=== PATIENT | female | born 1930 | race Caucasian/White ===

== ENCOUNTER 2017-02-08 23:21 | Emergency (ER) | payer MEDICARE, OTHER ==
[2017-02-08 23:31] VITALS: BP 164/74
[2017-02-08] MEDS ORDERED: Ketorolac 30 MG/ML SDV IM ONE (23:49)
--- NOTE | 2017-02-08 23:52 | EDM.PDOC ---
ED HPI GENERAL MEDICAL PROBLEM - General Chief Complaint: Lower Extremity Injury/Pain Stated Complaint: SCIATIC PAIN Time Seen by Provider: 02/08/17 23:50 Source of Information: Reports: Patient History Limitations: Reports: No Limitations - History of Present Illness INITIAL COMMENTS - FREE TEXT/NARRATIVE: gives long h/o sciatica got a shot for it before and it helped can't remember what. Right Hip Pain Score (Numeric/FACES): 9 - Related Data Allergies Allergy/AdvReac Type Severity Reaction Status Date / Time celecoxib [From Celebrex] Allergy Cannot Verified 05/20/15 11:19 Remember codeine Allergy Cannot Verified 05/20/15 11:19 Remember montelukast sodium Allergy Cannot Verified 05/20/15 11:19 [From Singulair] Remember morphine Allergy Cannot Verified 05/20/15 11:19 Remember Home Meds: Home Meds . 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 ED EXAM, GENERAL - Physical Exam Exam: See Below Exam Limited By: No Limitations General Appearance: Alert, WD/WN, Mild Distress, Other (pain) Ears: Hearing Grossly Normal Throat/Mouth: Normal Voice, No Airway Compromise Head: Atraumatic Neck: Non-Tender, Full Range of Motion Respiratory/Chest: No Respiratory Distress Cardiovascular: Regular Rate, Rhythm GI/Abdominal: Soft, Non-Tender Back Exam: Muscle Spasm, Other (right LS region without mid radiculitis, gait limited to pain) Neurological: Alert, Oriented, Normal Cognition, Normal Gait, No Motor/Sensory Deficits Psychiatric: Flat Affect Skin Exam: Warm, Dry, Normal Color Lymphatic: No Adenopathy Course - Vital Signs Last Recorded V/S: Last Vital Signs Temp 37.2 C 02/08/17 23:25 Pulse 84 02/08/17 23:25 Resp 18 02/08/17 23:25 BP 164/74 H 02/08/17 23:25 Pulse Ox 100 02/08/17 23:25 - Orders/Labs/Meds Meds: Medications Discontinued Medications Generic Name Dose Route Start Last Admin Trade Name Viktoria PRN Reason Stop Dose Admin Ketorolac Tromethamine 30 mg 02/08/17 23:49 02/08/17 23:56 Toradol IM 02/08/17 23:50 30 mg ONETIME ONE Administration - Re-Assessments/Exams Free Text/Narrative Re-Assessment/Exam: 02/09/17 00:22 s/p toradol = much better Departure - Departure Time of Disposition: 00:22 Disposition: Home, Self-Care 01 Condition: Good Clinical Impression: Sciatica neuralgia Qualifiers: Laterality: right Qualified Code(s): M54.31 - Sciatica, right side - Discharge Information Instructions: Sciatica, [id number] Forms: ED Department Discharge Additional Instructions: 1) rest 2) avoid bending lifting straining 3) try heat to sore area 4) follow up at clinic or recheck as needed
== END 2017-02-09 00:29 | disposition home or self-care (01) ==
LOC: DL.ED 23:21
DX: M54.31 Sciatica, right side (principal); M19.90 Unspecified osteoarthritis, unspecified site; F03.90 Unspecified dementia, unspecified severity, without behavioral disturbance, psychotic disturbance, mood disturbance, and anxiety; Z90.49 Acquired absence of other specified parts of digestive tract; Z98.890 Other specified postprocedural states; Z88.5 Allergy status to narcotic agent; Z88.8 Allergy status to other drugs, medicaments and biological substances
CPT/HCPCS: 96372; 99283; J1885

== ENCOUNTER 2017-07-12 03:39 | Inpatient (IN) | payer MEDICARE, OTHER ==
[2017-07-12] MEDS ORDERED: Morphine 4 MG/ML Syringe IVPUSH ONE (03:46)
[2017-07-12] MEDS ORDERED: Ondansetron 4 MG/2 ML SDV IV ONE (03:46)
--- NOTE | 2017-07-12 03:52 | EDM.PDOC ---
ED HPI GENERAL MEDICAL PROBLEM - General Chief Complaint: Upper Extremity Injury/Pain Stated Complaint: AMBULANCE SHOULDER PAIN Time Seen by Provider: 07/12/17 03:40 Source of Information: Reports: Patient History Limitations: Reports: No Limitations - History of Present Illness INITIAL COMMENTS - FREE TEXT/NARRATIVE: patient comes emergency Department today with complaints of left shoulder and humerus pain from a fall. The patient was trying to change her pants when she was at the assisted and she slipped while she was leaning on the wall landing on her left shoulder injuring her left shoulder and humerus. She laid on the floor for an hour to return to get ahold of someone to get their attention. She denies any loss of consciousness. She denies any headache or back pain. She primarily complains of pain to left shoulder and left humerus. She denies any chest pain. She denies any back pain. She denies any weakness dizziness lightheadedness or palpitations. She clearly just slipped and fell landing on her shoulder she relates. Left Shoulder Pain Score (Numeric/FACES): 8 - Related Data Allergies Allergy/AdvReac Type Severity Reaction Status Date / Time celecoxib [From Celebrex] Allergy Cannot Verified 05/20/15 11:19 Remember codeine Allergy Cannot Verified 05/20/15 11:19 Remember montelukast sodium Allergy Cannot Verified 05/20/15 11:19 [From Singulair] Remember morphine Allergy Cannot Verified 05/20/15 11:19 Remember Home Meds: Home Meds Aspirin 1 tab PO DAILY 07/12/17 [History] Cholecalciferol (Vitamin D3) [Vitamin D3] 1 cap PO DAILY 07/12/17 [History] Multivitamin [Multivitamins] 1 tab PO DAILY 07/12/17 [History] Past Medical History Musculoskeletal History: Reports: Arthritis Other Musculoskeletal History: arthritis Neurological History: Reports: Other (See Below) 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 ED EXAM, GENERAL - Physical Exam Exam: See Below Exam Limited By: No Limitations General Appearance: Alert, WD/WN, Mild Distress (appears mildly uncomfortable and [place] and screams out in pain with any movement.) Eye Exam: Bilateral Eye: Normal Inspection Ears: Normal External Exam, Normal Canal, Normal TMs Nose: Normal Inspection, Normal Mucosa, No Blood Throat/Mouth: Normal Inspection, Normal Lips Head: Atraumatic, Normocephalic Neck: Normal Inspection, Supple, Non-Tender, Full Range of Motion Respiratory/Chest: No Respiratory Distress, Lungs Clear Cardiovascular: Normal Peripheral Pulses, Regular Rate, Rhythm Peripheral Pulses: 2+: Radial (L), Radial (R) GI/Abdominal: Normal Bowel Sounds, Soft (Female) Exam: Deferred Rectal (Female) Exam: Deferred Back Exam: Normal Inspection, Full Range of Motion. No: Paraspinal Tenderness, Vertebral Tenderness Extremities: No: Normal Inspection (examination of the left upper extremity shows anterior swelling of the left shoulder with bruising as well. No overt bony deformity although difficult with the amount of swelling. On the proximal aspect of the left humerus there is quite a bit of tenderness and a question bony abnormality at this site. There is some crepitus. There is no breaks in the skin. Elbow is atraumatic without tenderness present swelling or ecchymosis or bony deformity. The left forearm wrist and hand as well are atraumatic and similar to the left elbow. CMS is intact throughout the entirety of the left upper extremity. There is no tenderness bruising swelling or ecchymosis to left scapula.) Neurological: Alert, Oriented, CN II-XII Intact, Normal Cognition, No Motor/ Sensory Deficits Psychiatric: Normal Affect, Normal Mood Skin Exam: Warm, Dry, Intact, Normal Color Course - Vital Signs Last Recorded V/S: Last Vital Signs Temp 36.3 C 07/12/17 03:44 Pulse 86 07/12/17 03:44 Resp 16 07/12/17 03:44 BP 168/67 H 07/12/17 03:44 Pulse Ox 100 07/12/17 03:44 - Orders/Labs/Meds Orders: Active Orders 24 hr Category Date Time Status Humerus Lt [CR] Urgent Exams 07/12/17 03:50 Taken Shoulder Comp Lt [CR] Urgent Exams 07/12/17 03:50 Ordered Meds: Medications Discontinued Medications Generic Name Dose Route Start Last Admin Trade Name Viktoria PRN Reason Stop Dose Admin Diphenhydramine HCl 25 mg 07/12/17 04:27 07/12/17 04:31 Benadryl IVPUSH 07/12/17 04:28 25 mg ONETIME ONE Administration Diphenhydramine HCl Confirm 07/12/17 04:29 07/12/17 04:35 Benadryl Administered 07/12/17 04:30 Not Given Dose 50 mg .ROUTE .STK-MED ONE Methylprednisolone Sodium Succinate 125 mg 07/12/17 04:27 07/12/17 04:31 Solu-Medrol IVPUSH 07/12/17 04:28 125 mg ONETIME ONE Administration Methylprednisolone Sodium Succinate Confirm 07/12/17 04:29 07/12/17 04:35 Solu-Medrol Administered 07/12/17 04:30 Not Given Dose 125 mg .ROUTE .STK-MED ONE Morphine Sulfate 4 mg 07/12/17 03:46 07/12/17 03:53 Morphine IVPUSH 07/12/17 03:47 4 mg ONETIME ONE Administration Ondansetron HCl 4 mg 07/12/17 03:46 07/12/17 03:52 Zofran IV 07/12/17 03:47 4 mg ONETIME ONE Administration - Radiology Interpretation Free Text/Narrative:: x-ray of the left shoulder reviewed extemporaneously by myself with a comminuted impacted proximal humeral head fracture that is moderately displaced x-ray per radiology acute nondisplaced fracture of the proximal shaft of the humerus. - Re-Assessments/Exams Free Text/Narrative Re-Assessment/Exam: 07/12/17 03:58 Morphine 4mg IVP Zofran 4mg IVP 07/12/17 07:17 Pt has been resting well after the above therapy. Pt was noted to have a morphine allergy bracelet on that she did not alert up to upon arrival after the morphien she did get some itching and was given Benadryl and solumedrol. She was placed in a sling and we tried to get her up and see if we could get her home and she had a syncopal episode vaso-vagel episode while on the commode. She had to be lifted to the bed. She maintained per pulse somewhat josh and respirations on her own. She quickly alerted. Due to the syncopal episode and the pain she is having and living at an assistive living center we can not discharge her home due to safety concerns. Departure - Departure Time of Disposition: 07:15 Disposition: Admitted As Inpatient 67 Clinical Impression: Fracture of humerus Qualifiers: Encounter type: initial encounter Humerus Location: proximal Fracture type: closed Fracture alignment: nondisplaced Laterality: left Syncope Qualifiers: Syncope type: vasovagal syncope Qualified Code(s): R55 - Syncope and collapse - Discharge Information Forms: ED Department Discharge ED Communication - Discussed Case With (1) Discussed Case With (1): Admitting Provider (Spoke with Dr. Cid HPI [facility] findings and concerned were relayed to him. His questions were answered. He accepted the patient in transfer here at [facility].) - My Orders Last 24 Hours: My Active Orders 07/12/17 03:50 Humerus Lt [CR] Urgent Shoulder Comp Lt [CR] Urgent - Assessment/Plan Last 24 Hours: My Active Orders 07/12/17 03:50 Humerus Lt [CR] Urgent Shoulder Comp Lt [CR] Urgent Assessment:: Left proximal humerus fracture. Syncopal episode vaso-vagel. Plan: Admit Jose Roberto for pain management and monitoring.
[2017-07-12] MEDS ORDERED: diphenhydrAMINE 50 MG/ML SDV IVPUSH ONE (04:27)
[2017-07-12] MEDS ORDERED: methylPREDNISolone Sodium Succinate 125 MG/2 ML SDV IVPUSH ONE (04:27)
[2017-07-12] MEDS ORDERED: diphenhydrAMINE 50 MG/ML SDV ONE (04:29)
[2017-07-12] MEDS ORDERED: methylPREDNISolone Sodium Succinate 125 MG/2 ML SDV ONE (04:29)
[2017-07-12] MEDS ORDERED: Sodium Chloride 0.9% 10 ML Syringe FLUSH PRN (09:22)
[2017-07-12] MEDS ORDERED: Zolpidem 5 MG Tab PO PRN (09:22)
--- NOTE | 2017-07-12 09:35 | PCM.HP ---
H&P History of Present Illness - General Date of Service: 07/12/17 Admit Problem/Dx: Admission Diagnosis/Problem Admission Diagnosis/Problem Syncope Source of Information: Patient - History of Present Illness Initial Comments - Free Text/Narative: The patient is an 87-year-old lady with no major medical problems. The patient had a fall while she was trying to put her pants on. She laid on the floor for about 3 hours as she is estimating. She was brought into the emergency room after she was found. She was noted to have from humeral fracture. She received morphine after which had itching and concern was allergic reaction associated received Benadryl and Solu-Medrol. While trying to get her off and see if she would be able to function at home she had a brief near syncopal episode. Transient bradycardia was noted. The patient completely recovered quickly. She is complaining of mild to moderate pain in the left shoulder, worse with movements. This is since the fall. No associated chest pain, shortness of breath. She denies any symptoms prior to the fall. It was just an accidental mechanical fall. Left Shoulder Pain Score (Numeric/FACES): 8 - Related Data Allergies/Adverse Reactions: Allergies Allergy/AdvReac Type Severity Reaction Status Date / Time celecoxib [From Celebrex] Allergy Cannot Verified 05/20/15 11:19 Remember codeine Allergy Cannot Verified 05/20/15 11:19 Remember montelukast sodium Allergy Cannot Verified 05/20/15 11:19 [From Singulair] Remember morphine Allergy Cannot Verified 05/20/15 11:19 Remember Home Medications: Home Meds Aspirin 1 tab PO DAILY 07/12/17 [History] Cholecalciferol (Vitamin D3) [Vitamin D3] 1 cap PO DAILY 07/12/17 [History] Multivitamin [Multivitamins] 1 tab PO DAILY 07/12/17 [History] Past Medical History Musculoskeletal History: Reports: Arthritis Other Musculoskeletal History: arthritis Neurological History: Reports: Other (See Below) 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 Psychiatric History: Reports: Dementia, Depression - Infectious Disease History Infectious Disease History: Reports: Chicken Pox, Measles, Mumps - Past Surgical History GI Surgical History: Reports: Cholecystectomy Other Musculoskeletal Surgeries/Procedures:: left shoulder dislocation Social & Family History - Tobacco Use Smoking Status *Q: Never Smoker Second Hand Smoke Exposure: No - Caffeine Use Caffeine Use: Reports: Coffee - Recreational Drug Use Recreational Drug Use: No H&P Review of Systems - Review of Systems: Review Of Systems: See Below General: Denies: Fever, Chills Pulmonary: Denies: Shortness of Breath Cardiovascular: Denies: Chest Pain Gastrointestinal: Denies: Abdominal Pain Musculoskeletal: Reports: Other (Left upper arm pain) Exam - Exam Exam: See Below - Vital Signs Vital Signs: Last Vital Signs Temp 36.3 C 07/12/17 08:42 Pulse 93 07/12/17 08:42 Resp 20 07/12/17 08:42 BP 116/62 07/12/17 08:42 Pulse Ox 100 07/12/17 08:42 Weight: 63.503 kg - Exam General: Alert, Oriented Neck: Supple Lungs: Clear to Auscultation, Normal Respiratory Effort Cardiovascular: Regular Rate, Regular Rhythm GI/Abdominal Exam: Normal Bowel Sounds, Soft, Non-Tender Extremities: Pedal Edema (Trace bilateral) Neurological: Cranial Nerves Intact Neuro Extensive - Mental Status: Alert, Oriented x3, Normal Mood/Affect *Q Meaningful Use (ADM) - VTE *Q VTE Criteria *Q: - Stroke *Q Stroke Criteria *Q: - AMI *Q AMI Criteria *Q: - Problem List (1) Fracture of humerus SNOMED Code(s): 14973251 ICD Code: S42.309A - UNSP FRACTURE OF SHAFT OF HUMERUS, UNSP ARM, INIT Status: Acute Current Visit: Yes Qualifiers: Encounter type: initial encounter Humerus Location: proximal Fracture type: closed Fracture alignment: nondisplaced Laterality: left (2) Syncope SNOMED Code(s): 725006889 ICD Code: R55 - SYNCOPE AND COLLAPSE Status: Acute Current Visit: Yes Qualifiers: Syncope type: vasovagal syncope Qualified Code(s): R55 - Syncope and collapse Problem List Initiated/Reviewed/Updated: Yes Orders Last 24hrs: Active Orders 24 hr Category Date Time Status Patient Status [ADT] Routine ADT 07/12/17 09:22 Ordered Antiembolic Devices [RC] PER UNIT ROUTINE Care 07/12/17 09:26 Ordered Oxygen Therapy [RC] PRN Care 07/12/17 09:22 Ordered Peripheral IV Care [RC] . DIRECTED Care 07/12/17 09:26 Ordered Telemetry Monitoring [Cardiac Monitoring] [RC] . Care 07/12/17 09:18 Ordered DIRECTED Up With Assistance [RC] ASDIRECTED Care 07/12/17 09:22 Ordered VTE/DVT Education [RC] PER UNIT ROUTINE Care 07/12/17 09:22 Ordered Vital Signs [RC] Q4H Care 07/12/17 09:22 Ordered OT Evaluation and Treatment [CONS] Routine Cons 07/12/17 09:19 Ordered PT Evaluation and Treatment [CONS] Routine Cons 07/12/17 09:19 Ordered Regular Diet [DIET] Diet 07/12/17 Lunch Ordered BASIC METABOLIC PANEL,BMP [CHEM] AM Lab 07/13/17 05:15 Ordered BASIC METABOLIC PANEL,BMP [CHEM] Routine Lab 07/12/17 09:20 Ordered CBC WITH AUTO DIFF [HEME] AM Lab 07/13/17 05:15 Ordered CBC WITH AUTO DIFF [HEME] Routine Lab 07/12/17 09:20 Ordered TROPONIN I [CHEM] Routine Lab 07/12/17 09:22 Ordered Acetaminophen [Tylenol] Med 07/12/17 09:17 Ordered 650 mg PO Q6H PRN Aspirin Med 07/13/17 09:00 Ordered 1 tab PO DAILY Cholecalciferol (Vitamin D3) [Vitamin D3] Med 07/13/17 09:00 Ordered 1 cap PO DAILY Heparin Sodium Med 07/12/17 14:00 Ordered 5,000 units SUBCUT Q8HR Ibuprofen [Motrin] Med 07/12/17 09:20 Ordered 400 mg PO Q6H PRN Multivitamin [Multivitamins] Med 07/13/17 09:00 Ordered 1 tab PO DAILY Sodium Chloride 0.9% [Saline Flush] Med 07/12/17 09:22 Ordered 10 ml FLUSH ASDIRECTED PRN Zolpidem [Ambien] Med 07/12/17 09:22 Ordered 5 mg PO BEDTIME PRN Antiembolic Hose [OM.PC] Per Unit Routine Oth 07/12/17 09:25 Ordered Peripheral IV Insertion Adult [OM.PC] Routine Oth 07/12/17 09:22 Ordered Saline Lock Insert [OM.PC] Routine Oth 07/12/17 09:22 Ordered Resuscitation Status Routine Resus Stat 07/12/17 09:22 Ordered Medication Orders Acetaminophen (Tylenol) 650 mg PO Q6H PRN PRN Reason: pain, fever Aspirin (Aspirin) mg PO DAILY JOSSELYN Heparin Sodium (Porcine) (Heparin Sodium) 5,000 units SUBCUT Q8HR JOSSELYN Ibuprofen (Motrin) 400 mg PO Q6H PRN PRN Reason: Pain Non-Formulary Medication (Cholecalciferol (Vitamin D3) [Vitamin D3]) 1 cap PO DAILY JOSSELYN Non-Formulary Medication (Multivitamin [Multivitamins]) 1 tab PO DAILY [facility] Sodium Chloride (Saline Flush) 10 ml FLUSH ASDIRECTED PRN PRN Reason: Keep Vein Open Zolpidem Tartrate (Ambien) 5 mg PO BEDTIME PRN PRN Reason: Sleep Assessment/Plan Comment:: #1 left humeral fracture. This appeared nondisplaced on x-ray. For now use a sling We'll need further orthopedic follow-up. #2 pain control We will be careful with narcotics, start Tylenol Use Motrin, she has tolerated naproxen in the past but does have celecoxib noted as an allergy #3 syncopal episode This might be due to pain medications, pain Will check basic metabolic panel, CBC, monitor on telemetry, check troponin #4. Os PT and OT to evaluate the patient for discharge planning #5 DVT prophylaxis with subcutaneous heparin
[2017-07-12 10:32] LABS: ANION GAP 10.5; CHLORIDE,CL 97 mmol/L (101-111); SODIUM,NA 135 mmol/L (135-145)
[2017-07-12] MEDS ORDERED: Potassium Chloride 10 MEQ Tab.ER PO ONE (12:32)
[2017-07-12] MEDS: Acetaminophen 325 MG Tab PO PRN ×2 (12:45→20:07)
[2017-07-12] MEDS: Heparin Sodium 5,000 Units/ML Vial SUBCUT SCH ×2 (13:24→22:13)
[2017-07-12] MEDS: Ibuprofen 400 MG Tab PO PRN (15:28)
[2017-07-13] MEDS: Ibuprofen 400 MG Tab PO PRN ×3 (04:56→20:51)
[2017-07-13] MEDS: Heparin Sodium 5,000 Units/ML Vial SUBCUT SCH ×3 (05:22→21:47)
[2017-07-13 07:05] LABS: ANION GAP 13.5
[2017-07-13] MEDS: Aspirin 81 MG Tab.Chew PO SCH (08:19)
[2017-07-13] MEDS: Multivitamins,Therapeutic Tab PO SCH (08:20)
[2017-07-13] MEDS: Acetaminophen 325 MG Tab PO PRN ×2 (08:24→21:51)
[2017-07-13] MEDS ORDERED: CHOLECALCIFEROL 1000 UNIT PO SCH (09:00)
[2017-07-13] MEDS ORDERED: Magnesium Hydroxide 400 MG/5 ML Susp 30 ML Cup PO PRN (11:22)
--- NOTE | 2017-07-13 11:30 | PCM.PN ---
- General Info Date of Service: 07/13/17 Admission Dx/Problem (Free Text): Admission Diagnosis/Problem Admission Diagnosis/Problem humerus fracture Subjective Update: No further syncopal episode. She is feeling well other than the left upper extremity pain. She has pain in the left upper extremity with movements. No pain at rest. Noted to have mild confusion yesterday. That appears improved Still needs significant help with activities. No chest pain, shortness of breath. - Review of Systems General: Reports: Weakness. Denies: Fever Pulmonary: Denies: Shortness of Breath Cardiovascular: Denies: Chest Pain Gastrointestinal: Denies: Abdominal Pain Genitourinary: Denies: Dysuria - Patient Data Vitals - Most Recent: Last Vital Signs Temp 36.9 C 07/13/17 07:53 Pulse 76 07/13/17 07:53 Resp 18 07/13/17 07:53 BP 93/43 L 07/13/17 07:53 Pulse Ox 98 07/13/17 09:22 Weight - Most Recent: 63.503 kg I&O - Last 24 Hours: Intake & Output 07/12/17 07/13/17 07/13/17 22:59 06:59 14:59 Intake Total 350 950 Output Total 250 225 150 Balance -250 125 800 Lab Results Last 24 Hours: Laboratory Results - last 24 hr 07/12/17 07/13/17 07/13/17 Range/Units 16:34 06:00 06:00 WBC 11.0 H (5.0-10.0) 10^3/uL RBC 2.83 L (4.2-5.4) 10^6/uL Hgb 8.6 L D (12.0-16.0) g/dL Hct 26.1 L (37.0-47.0) % MCV 92.2 (80-100) fL MCH 30.4 (27.0-34.0) pg MCHC 33.0 (33.0-35.0) g/dL Plt Count 193 (150-450) 10^3/uL Neut % (Auto) 75.7 H (42.2-75.2) % Lymph % (Auto) 13.6 L (20.5-50.1) % [place] % (Auto) 10.0 H (2-8) % Eos % (Auto) 0.1 L (1.0-3.0) % Baso % (Auto) 0.6 (0.0-1.0) % Sodium 132 L (135-145) mmol/L Potassium 4.5 (3.6-5.0) mmol/L Chloride 97 L (101-111) mmol/L Carbon Dioxide 26.0 (21.0-31.0) mmol/L Anion Gap 13.5 BUN 28 H (7-18) mg/dL Creatinine 0.9 (0.6-1.3) mg/dL Est Cr Clr Drug Dosing 35.49 mL/min Estimated GFR (MDRD) 59 Glucose 105 (74-105) mg/dL Calcium 8.6 (8.4-10.2) mg/dl Urine Color Yellow (YELLOW) Urine Appearance Slightly cloudy (CLEAR) Urine pH 6.0 (5.0-9.0) Ur Specific [place] 1.020 (1.005-1.030) Urine Protein Negative (NEGATIVE) Urine Glucose (UA) 100 H (NEGATIVE) Urine Ketones Negative (NEGATIVE) Urine Occult Blood Negative (NEGATIVE) Urine Nitrite Negative (NEGATIVE) Urine Bilirubin Negative (NEGATIVE) Urine Urobilinogen 0.2 (0.2-1.0) mg/dL Ur Leukocyte Esterase Negative (NEGATIVE) Urine RBC 0-5 /HPF Urine WBC 0-5 (0-5/HPF) /HPF Ur Epithelial Cells Rare /HPF Amorphous Sediment Moderate H (0/HPF) /HPF Urine Bacteria Rare (0-FEW/HPF) /HPF Med Orders - Current: Current Medications Acetaminophen (Tylenol) 650 mg PO Q6H PRN PRN Reason: pain, fever Last Admin: 07/13/17 08:24 Dose: 650 mg Aspirin (Aspirin) 81 mg PO DAILY@0800 [facility] Last Admin: 07/13/17 08:19 Dose: 81 mg Heparin Sodium (Porcine) (Heparin Sodium) 5,000 units SUBCUT Q8HR [facility] Last Admin: 07/13/17 05:22 Dose: 5,000 units Ibuprofen (Motrin) 400 mg PO Q6H PRN PRN Reason: Pain Last Admin: 07/13/17 04:56 Dose: 400 mg Magnesium Hydroxide (Milk Of Magnesia) 30 ml PO Q8H PRN PRN Reason: Constipation Multivitamins (Thera) 1 each PO DAILY [facility] Last Admin: 07/13/17 08:20 Dose: 1 each Cholecalciferol ( Vitamin D3) 1000 Unit Tab- Nonform Med 0 cap PO DAILY JOSSELYN Sodium Chloride (Saline Flush) 10 ml FLUSH ASDIRECTED PRN PRN Reason: Keep Vein Open Zolpidem Tartrate (Ambien) 5 mg PO BEDTIME PRN PRN Reason: Sleep Discontinued Medications Diphenhydramine HCl (Benadryl) 25 mg IVPUSH ONETIME ONE Stop: 07/12/17 04:28 Last Admin: 07/12/17 04:31 Dose: 25 mg Diphenhydramine HCl (Benadryl) Confirm Administered Dose 50 mg .ROUTE .STK-MED ONE Stop: 07/12/17 04:30 Last Admin: 07/12/17 04:35 Dose: Not Given Methylprednisolone Sodium Succinate (Solu-Medrol) 125 mg IVPUSH ONETIME ONE Stop: 07/12/17 04:28 Last Admin: 07/12/17 04:31 Dose: 125 mg Methylprednisolone Sodium Succinate (Solu-Medrol) Confirm Administered Dose 125 mg .ROUTE .STK-MED ONE Stop: 07/12/17 04:30 Last Admin: 07/12/17 04:35 Dose: Not Given Morphine Sulfate (Morphine) 4 mg IVPUSH ONETIME ONE Stop: 07/12/17 03:47 Last Admin: 07/12/17 03:53 Dose: 4 mg Ondansetron HCl (Zofran) 4 mg IV ONETIME ONE Stop: 07/12/17 03:47 Last Admin: 07/12/17 03:52 Dose: 4 mg Potassium Chloride (Klor-Con 10) 40 meq PO ONETIME ONE Stop: 07/12/17 12:33 Last Admin: 07/12/17 13:20 Dose: 40 meq - Exam General: Alert, Oriented Neck: Supple Lungs: Normal Respiratory Effort, Decreased Breath Sounds Cardiovascular: Regular Rate, Regular Rhythm Extremities: No Pedal Edema, Other (Left upper extremity in a sling) - Problem List & Annotations (1) Fracture of humerus SNOMED Code(s): 87580820 Code(s): S42.309A - UNSP FRACTURE OF SHAFT OF HUMERUS, UNSP ARM, INIT Status: Acute Current Visit: Yes Qualifiers: Encounter type: initial encounter Humerus Location: proximal Fracture type: closed Fracture alignment: nondisplaced Laterality: left (2) Syncope SNOMED Code(s): 544586812 Code(s): R55 - SYNCOPE AND COLLAPSE Status: Acute Current Visit: Yes Qualifiers: Syncope type: vasovagal syncope Qualified Code(s): R55 - Syncope and collapse - Problem List Review Problem List Initiated/Reviewed/Updated: Yes - My Orders Last 24 Hours: My Active Orders 07/13/17 11:22 Magnesium Hydroxide [Milk of Magnesia] 30 ml PO Q8H PRN - Plan Plan:: #1 left humeral fracture. This appeared nondisplaced on x-ray. For now use a sling We'll need further orthopedic follow-up. Still needs significant help from the nursing staff. I do not think that she is currently able to manage on her own. #2 pain control We will be careful with narcotics, use Tylenol Use Motrin, she has tolerated naproxen in the past but does have celecoxib noted as an allergy #3 syncopal episode This might be due to pain medications, pain No arrhythmia on telemetry #4. Will have PT and OT to evaluate the patient for discharge planning #5 DVT prophylaxis with subcutaneous heparin
[2017-07-13] MEDS: CHOLECALCIFEROL 1000 UNIT PO SCH (16:31)
[2017-07-14] MEDS: Ibuprofen 400 MG Tab PO PRN ×3 (04:58→22:11)
[2017-07-14] MEDS: Heparin Sodium 5,000 Units/ML Vial SUBCUT SCH ×3 (06:10→22:05)
[2017-07-14] MEDS: Aspirin 81 MG Tab.Chew PO SCH (08:22)
[2017-07-14] MEDS: Multivitamins,Therapeutic Tab PO SCH (08:22)
[2017-07-14] MEDS: CHOLECALCIFEROL 1000 UNIT PO SCH (08:24)
[2017-07-14] MEDS: Acetaminophen 325 MG Tab PO PRN (17:43)
[2017-07-15] MEDS: Ibuprofen 400 MG Tab PO PRN ×2 (05:12→23:44)
[2017-07-15] MEDS: Heparin Sodium 5,000 Units/ML Vial SUBCUT SCH ×2 (05:13→14:53)
[2017-07-15 07:07] LABS: ANION GAP 9.2; CHLORIDE,CL 96 mmol/L (101-111); SODIUM,NA 131 mmol/L (135-145)
[2017-07-15] MEDS: Acetaminophen 325 MG Tab PO PRN ×2 (10:21→19:19)
[2017-07-15] MEDS: Multivitamins,Therapeutic Tab PO SCH (10:22)
[2017-07-15] MEDS: Aspirin 81 MG Tab.Chew PO SCH (10:22)
[2017-07-15] MEDS: CHOLECALCIFEROL 1000 UNIT PO SCH (10:23)
--- NOTE | 2017-07-15 13:53 | PCM.PN ---
- General Info Date of Service: 07/15/17 Admission Dx/Problem (Free Text): Admission Diagnosis/Problem Admission Diagnosis/Problem humerus fracture Subjective Update: No further syncopal episode. She is feeling well other than the left upper extremity pain. She has pain in the left upper extremity with movements. the left upper extremity developed large amount of bruising, swelling, hematoma No chest pain, shortness of breath. - Review of Systems General: Denies: Fever Pulmonary: Denies: Shortness of Breath Cardiovascular: Denies: Chest Pain Neurological: Denies: Confusion (in the evenings) - Patient Data Vitals - Most Recent: Last Vital Signs Temp 36.3 C 07/15/17 12:17 Pulse 75 07/15/17 12:17 Resp 20 07/15/17 12:17 BP 106/37 L 07/15/17 12:17 Pulse Ox 94 L 07/15/17 12:17 Weight - Most Recent: 63.503 kg I&O - Last 24 Hours: Intake & Output 07/14/17 07/15/17 07/15/17 22:59 06:59 14:59 Intake Total 540 250 Output Total 400 1250 Balance 140 -1000 Lab Results Last 24 Hours: Laboratory Results - last 24 hr 07/15/17 07/15/17 07/15/17 Range/Units 06:25 06:25 08:02 WBC 5.9 (5.0-10.0) 10^3/uL RBC 2.26 L (4.2-5.4) 10^6/uL Hgb 6.8 L* D 7.0 L (12.0-16.0) g/dL Hct 21.0 L (37.0-47.0) % MCV 92.9 (80-100) fL MCH 30.1 (27.0-34.0) pg MCHC 32.4 L (33.0-35.0) g/dL Plt Count 161 (150-450) 10^3/uL Neut % (Auto) 66.0 (42.2-75.2) % Lymph % (Auto) 21.8 (20.5-50.1) % [place] % (Auto) 9.8 H (2-8) % Eos % (Auto) 1.9 (1.0-3.0) % Baso % (Auto) 0.5 (0.0-1.0) % Sodium 131 L (135-145) mmol/L Potassium 4.2 (3.6-5.0) mmol/L Chloride 96 L (101-111) mmol/L Carbon Dioxide 30.0 (21.0-31.0) mmol/L Anion Gap 9.2 BUN 16 (7-18) mg/dL Creatinine 0.6 (0.6-1.3) mg/dL Est Cr Clr Drug Dosing 53.23 mL/min Estimated GFR (MDRD) > 60 Glucose 99 (74-105) mg/dL Calcium 8.2 L (8.4-10.2) mg/dl Med Orders - Current: Current Medications Acetaminophen (Tylenol) 650 mg PO Q6H PRN PRN Reason: pain, fever Last Admin: 07/15/17 10:21 Dose: 650 mg Aspirin (Aspirin) 81 mg PO DAILY@0800 [facility] Last Admin: 07/15/17 10:22 Dose: 81 mg Heparin Sodium (Porcine) (Heparin Sodium) 5,000 units SUBCUT Q8HR [facility] Last Admin: 07/15/17 05:13 Dose: 5,000 units Ibuprofen (Motrin) 400 mg PO Q6H PRN PRN Reason: Pain Last Admin: 07/15/17 05:12 Dose: 400 mg Magnesium Hydroxide (Milk Of Magnesia) 30 ml PO Q8H PRN PRN Reason: Constipation Last Admin: 07/13/17 14:18 Dose: 30 ml Multivitamins (Thera) 1 each PO DAILY [facility] Last Admin: 07/15/17 10:22 Dose: 1 each Cholecalciferol ( Vitamin D3) 1000 Unit Tab-*Patients Own 2 cap PO DAILY [facility] Last Admin: 07/15/17 10:23 Dose: 2 cap Senna/Docusate Sodium (Senna Plus) 1 tab PO BID [facility] Last Admin: 07/15/17 10:21 Dose: 1 tab Sodium Chloride (Saline Flush) 10 ml FLUSH ASDIRECTED PRN PRN Reason: Keep Vein Open Zolpidem Tartrate (Ambien) 5 mg PO BEDTIME PRN PRN Reason: Sleep Discontinued Medications Diphenhydramine HCl (Benadryl) 25 mg IVPUSH ONETIME ONE Stop: 07/12/17 04:28 Last Admin: 07/12/17 04:31 Dose: 25 mg Diphenhydramine HCl (Benadryl) Confirm Administered Dose 50 mg .ROUTE .STK-MED ONE Stop: 07/12/17 04:30 Last Admin: 07/12/17 04:35 Dose: Not Given Methylprednisolone Sodium Succinate (Solu-Medrol) 125 mg IVPUSH ONETIME ONE Stop: 07/12/17 04:28 Last Admin: 07/12/17 04:31 Dose: 125 mg Methylprednisolone Sodium Succinate (Solu-Medrol) Confirm Administered Dose 125 mg .ROUTE .STK-MED ONE Stop: 07/12/17 04:30 Last Admin: 07/12/17 04:35 Dose: Not Given Morphine Sulfate (Morphine) 4 mg IVPUSH ONETIME ONE Stop: 07/12/17 03:47 Last Admin: 07/12/17 03:53 Dose: 4 mg Cholecalciferol ( Vitamin D3) 1000 Unit Tab- Nonform Med 0 cap PO DAILY [facility] Last Admin: 07/13/17 17:14 Dose: Not Given Ondansetron HCl (Zofran) 4 mg IV ONETIME ONE Stop: 07/12/17 03:47 Last Admin: 07/12/17 03:52 Dose: 4 mg Potassium Chloride (Klor-Con 10) 40 meq PO ONETIME ONE Stop: 07/12/17 12:33 Last Admin: 07/12/17 13:20 Dose: 40 meq - Exam General: Alert, Oriented Lungs: Clear to Auscultation, Normal Respiratory Effort Cardiovascular: Regular Rate, Regular Rhythm Extremities: No Pedal Edema, Other (left upper extremity. Large amount of bruising, hematoma) - Problem List & Annotations (1) Fracture of humerus SNOMED Code(s): 67374532 Code(s): S42.309A - UNSP FRACTURE OF SHAFT OF HUMERUS, UNSP ARM, INIT Status: Acute Current Visit: Yes Qualifiers: Encounter type: initial encounter Humerus Location: proximal Fracture type: closed Fracture alignment: nondisplaced Laterality: left (2) Syncope SNOMED Code(s): 008674886 Code(s): R55 - SYNCOPE AND COLLAPSE Status: Acute Current Visit: Yes Qualifiers: Syncope type: vasovagal syncope Qualified Code(s): R55 - Syncope and collapse - Problem List Review Problem List Initiated/Reviewed/Updated: Yes - My Orders Last 24 Hours: My Active Orders 07/15/17 13:42 Humerus Lt [CR] Routine 07/15/17 13:43 RED BLOOD CELLS LP [BBK] Routine TYPE AND SCREEN [BBK] Routine Transfuse PRBC [Transfuse Red Blood Cells] [COMM] Routine Transfuse Red Blood Cells [COMM] Routine - Plan Plan:: #1 left humeral fracture. This appeared nondisplaced on x-ray. For now use a sling We'll need further orthopedic follow-up.we will check if this can be done here in [place] in the very near future. I will repeat another x-ray to make sure that there is no change in position Still needs significant help from the nursing staff. I do not think that she is currently able to manage on her own. #2 pain control We will be careful with narcotics, use Tylenol Use Motrin, she has tolerated naproxen in the past but does have celecoxib noted as an allergy #3 syncopal episode This might be due to pain medications, pain No arrhythmia on telemetry #4. Will have PT and OT to evaluate the patient for discharge planning #5 acute blood loss anemia secondary to left humeral fracture and hematoma I think the patient would benefit from a blood transfusion. Start iron as above. Discussed the risks benefits and alternatives of blood transfusion. #6 DVT prophylaxis with subcutaneous heparin
--- NOTE | 2017-07-15 14:23 | CR ---
Clinical history: 87-year-old hospitalized female who "fractured left shoulder, Saturday" now with incr eased swelling. Interpretation: Comminuted impacted, near anatomically aligned, fractures humeral head and neck. Mild subluxation but no dislocation of glenohumeral joint. Juxta-articular soft tissue swelling (hematoma?) but no sign of other fracture or acromioclavicular s eparation. Left lung apex clear (no ipsilateral rib fractures).
[2017-07-15] MEDS: traMADol 50 MG Tab PO PRN (21:36)
[2017-07-16] MEDS: Heparin Sodium 5,000 Units/ML Vial SUBCUT SCH ×2 (05:43→06:36)
[2017-07-16] MEDS: traMADol 50 MG Tab PO PRN (05:55)
[2017-07-16 07:02] LABS: ANION GAP 11.9; CHLORIDE,CL 98 mmol/L (101-111); SODIUM,NA 134 mmol/L (135-145)
[2017-07-16] MEDS ORDERED: Iron Polysaccharides Complex 150 MG Cap PO SCH (09:00)
[2017-07-16] MEDS: Aspirin 81 MG Tab.Chew PO SCH (09:12)
[2017-07-16] MEDS: Multivitamins,Therapeutic Tab PO SCH (09:12)
[2017-07-16] MEDS: CHOLECALCIFEROL 1000 UNIT PO SCH (09:13)
--- NOTE | 2017-07-16 10:56 | PCM.DCSUM1 ---
Discharge Summary - Hospital Course Free Text/Narrative:: The patient is an 87-year-old lady with no major medical problems. The patient had a fall while she was trying to put her pants on. She laid on the floor for about 3 hours as she is estimating. She was brought into the emergency room after she was found. She was noted to have from humeral fracture. She received morphine after which had itching and concern was allergic reaction associated received Benadryl and Solu-Medrol. While trying to get her off and see if she would be able to function at home she had a brief near syncopal episode. Transient bradycardia was noted. The patient completely recovered quickly. #1 left humeral fracture. This appeared nondisplaced on x-ray. developed large edema and hematoma repeated Xray on 07/15 - no change in position For now use a sling will transfer to [facility] for orthopedic evaluation Still needs significant help from the nursing staff. I do not think that she is currently able to manage on her own. discharge plan was to go to swing bed in [place] #2 pain control We will be careful with narcotics, use Tylenol Use Motrin, she has tolerated naproxen in the past but does have celecoxib noted as an allergy #3 syncopal episode This might be due to pain medications, pain No arrhythmia on telemetry #4 acute blood loss anemia secondary to left humeral fracture and hematoma received 2 u of PRBC transfusion on 07/15. Started iron. - Discharge Data Discharge Date: 07/16/17 Discharge Disposition: DC/Tfer to Acute Hospital 02 Condition: Good - Discharge Diagnosis/Problem(s) (1) Fracture of humerus SNOMED Code(s): 74537727 ICD Code: S42.309A - UNSP FRACTURE OF SHAFT OF HUMERUS, UNSP ARM, INIT Status: Acute Current Visit: Yes Qualifiers: Encounter type: initial encounter Humerus Location: proximal Fracture type: closed Fracture alignment: nondisplaced Laterality: left (2) Syncope SNOMED Code(s): 197757424 ICD Code: R55 - SYNCOPE AND COLLAPSE Status: Acute Current Visit: Yes Qualifiers: Syncope type: vasovagal syncope Qualified Code(s): R55 - Syncope and collapse - Patient Instructions Diet: Usual Diet as Tolerated Activity: As Tolerated - Discharge Plan Home Medications: Home Meds Aspirin 81 mg PO DAILY 07/12/17 [History] Cholecalciferol (Vitamin D3) [Vitamin D3] 2,000 units PO DAILY 07/12/17 [History ] Cyanocobalamin (Vitamin B12) [Vitamin B12] 1,000 mcg IM .MONTHLY 07/12/17 [ History] Mag Hydrox/Al Hydrox/Simeth [Maalox Maximum Strength Susp] 30 ml PO BID PRN [History] Magnesium Hydroxide [Milk of Magnesia] 30 ml PO BID PRN 07/12/17 [History] Multivitamin [Multivitamins] 1 tab PO DAILY 07/12/17 [History] Sennosides/Docusate Sodium [Senna-S] 1 tab PO ASDIRECTED PRN 07/12/17 [History] Iron Polysaccharides Complex [Ferrex 150] 150 mg PO DAILY #0 cap 07/16/17 [Rx] traMADol [Ultram] 50 mg PO Q6H PRN tablet 07/16/17 [Rx] - Discharge Summary/Plan Comment DC Time >30 min.: Yes (arranging transfer by ambulance to [facility], d/w accepting physician) - General Info Date of Service: 07/16/17 Functional Status: Reports: Pain Controlled (unless moving) - Review of Systems General: Denies: Fever Pulmonary: Denies: Shortness of Breath Cardiovascular: Denies: Chest Pain Gastrointestinal: Denies: Abdominal Pain Neurological: Reports: Confusion (epsiodically in he evening) - Patient Data Vitals - Most Recent: Last Vital Signs Temp 37.2 C 07/16/17 07:40 Pulse 73 07/16/17 07:40 Resp 20 07/16/17 07:40 BP 132/55 L 07/16/17 07:40 Pulse Ox 100 07/16/17 07:40 Weight - Most Recent: 63.503 kg I&O - Last 24 hours: Intake & Output 07/15/17 07/16/17 07/16/17 22:59 06:59 14:59 Intake Total 390 570 Output Total 850 450 Balance -460 120 Lab Results - Last 24 hrs: Laboratory Results - last 24 hr 07/16/17 07/16/17 Range/Units 06:05 06:05 WBC 5.8 (5.0-10.0) 10^3/uL RBC 3.10 L (4.2-5.4) 10^6/uL Hgb 9.5 L D (12.0-16.0) g/dL Hct 28.1 L (37.0-47.0) % MCV 90.6 (80-100) fL MCH 30.6 (27.0-34.0) pg MCHC 33.8 (33.0-35.0) g/dL Plt Count 167 (150-450) 10^3/uL Neut % (Auto) 56.4 (42.2-75.2) % Lymph % (Auto) 28.8 (20.5-50.1) % [place] % (Auto) 11.0 H (2-8) % Eos % (Auto) 3.1 H (1.0-3.0) % Baso % (Auto) 0.7 (0.0-1.0) % Sodium 134 L (135-145) mmol/L Potassium 3.9 (3.6-5.0) mmol/L Chloride 98 L (101-111) mmol/L Carbon Dioxide 28.0 (21.0-31.0) mmol/L Anion Gap 11.9 BUN 14 (7-18) mg/dL Creatinine 0.7 (0.6-1.3) mg/dL Est Cr Clr Drug Dosing 45.63 mL/min Estimated GFR (MDRD) > 60 Glucose 89 (74-105) mg/dL Calcium 8.3 L (8.4-10.2) mg/dl Med Orders - Current: Current Medications Acetaminophen (Tylenol) 650 mg PO Q6H PRN PRN Reason: pain, fever Last Admin: 07/15/17 19:19 Dose: 650 mg Aspirin (Aspirin) 81 mg PO DAILY@0800 [facility] Last Admin: 07/16/17 09:12 Dose: 81 mg Heparin Sodium (Porcine) (Heparin Sodium) 5,000 units SUBCUT Q8HR [facility] Last Admin: 07/16/17 06:36 Dose: 5,000 units Ibuprofen (Motrin) 400 mg PO Q6H PRN PRN Reason: Pain Last Admin: 07/15/17 23:44 Dose: 400 mg Magnesium Hydroxide (Milk Of Magnesia) 30 ml PO Q8H PRN PRN Reason: Constipation Last Admin: 07/13/17 14:18 Dose: 30 ml Multivitamins (Thera) 1 each PO DAILY [facility] Last Admin: 07/16/17 09:12 Dose: 1 each Cholecalciferol ( Vitamin D3) 1000 Unit Tab-*Patients Own 2 cap PO DAILY [facility] Last Admin: 07/16/17 09:13 Dose: 2 cap Polysaccharide Iron Complex (Ferrex 150) 150 mg PO DAILY [facility] Last Admin: 07/16/17 09:12 Dose: 150 mg Senna/Docusate Sodium (Senna Plus) 1 tab PO BID [facility] Last Admin: 07/16/17 09:12 Dose: 1 tab Sodium Chloride (Saline Flush) 10 ml FLUSH ASDIRECTED PRN PRN Reason: Keep Vein Open Tramadol HCl (Ultram) 50 mg PO Q6H PRN PRN Reason: Pain Last Admin: 07/16/17 05:55 Dose: 50 mg Zolpidem Tartrate (Ambien) 5 mg PO BEDTIME PRN PRN Reason: Sleep Last Admin: 07/15/17 23:44 Dose: 5 mg Discontinued Medications Diphenhydramine HCl (Benadryl) 25 mg IVPUSH ONETIME ONE Stop: 07/12/17 04:28 Last Admin: 07/12/17 04:31 Dose: 25 mg Diphenhydramine HCl (Benadryl) Confirm Administered Dose 50 mg .ROUTE .STK-MED ONE Stop: 07/12/17 04:30 Last Admin: 07/12/17 04:35 Dose: Not Given Methylprednisolone Sodium Succinate (Solu-Medrol) 125 mg IVPUSH ONETIME ONE Stop: 07/12/17 04:28 Last Admin: 07/12/17 04:31 Dose: 125 mg Methylprednisolone Sodium Succinate (Solu-Medrol) Confirm Administered Dose 125 mg .ROUTE .STK-MED ONE Stop: 07/12/17 04:30 Last Admin: 07/12/17 04:35 Dose: Not Given Morphine Sulfate (Morphine) 4 mg IVPUSH ONETIME ONE Stop: 07/12/17 03:47 Last Admin: 07/12/17 03:53 Dose: 4 mg Cholecalciferol ( Vitamin D3) 1000 Unit Tab- Nonform Med 0 cap PO DAILY [facility] Last Admin: 07/13/17 17:14 Dose: Not Given Ondansetron HCl (Zofran) 4 mg IV ONETIME ONE Stop: 07/12/17 03:47 Last Admin: 07/12/17 03:52 Dose: 4 mg Potassium Chloride (Klor-Con 10) 40 meq PO ONETIME ONE Stop: 07/12/17 12:33 Last Admin: 07/12/17 13:20 Dose: 40 meq - Exam General: Reports: Alert, Oriented Neck: Reports: Supple Lungs: Reports: Clear to Auscultation, Normal Respiratory Effort Cardiovascular: Reports: Regular Rate, Regular Rhythm Extremities: Other (left arm swollen, large hematoma, can move fingers well, no apparent ischemia in fingers, palpable radial a.) Neurological: Reports: No New Focal Deficit Psy/Mental Status: Reports: Alert, Normal Affect, Normal Mood *Q Meaningful Use (DIS) - VTE *Q VTE Criteria *Q: - Stroke *Q Stroke Criteria *Q: - AMI *Q AMI Criteria *Q:
[2017-07-16 11:17] VITALS: BP 124/49
--- NOTE | 2017-07-27 14:50 | PCM.PN ---
- General Info Date of Service: 07/14/17 - Patient Data Vitals - Most Recent: Last Vital Signs Temp 37.1 C 07/16/17 11:00 Pulse 80 07/16/17 11:00 Resp 20 07/16/17 11:00 BP 124/49 L 07/16/17 11:00 Pulse Ox 99 07/16/17 11:00 Weight - Most Recent: 63.503 kg Med Orders - Current: Current Medications Discontinued Medications Acetaminophen (Tylenol) 650 mg PO Q6H PRN PRN Reason: pain, fever Last Admin: 07/15/17 19:19 Dose: 650 mg Aspirin (Aspirin) 81 mg PO DAILY@0800 [facility] Last Admin: 07/16/17 09:12 Dose: 81 mg Diphenhydramine HCl (Benadryl) 25 mg IVPUSH ONETIME ONE Stop: 07/12/17 04:28 Last Admin: 07/12/17 04:31 Dose: 25 mg Diphenhydramine HCl (Benadryl) Confirm Administered Dose 50 mg .ROUTE .STK-MED ONE Stop: 07/12/17 04:30 Last Admin: 07/12/17 04:35 Dose: Not Given Heparin Sodium (Porcine) (Heparin Sodium) 5,000 units SUBCUT Q8HR [facility] Last Admin: 07/16/17 06:36 Dose: 5,000 units Ibuprofen (Motrin) 400 mg PO Q6H PRN PRN Reason: Pain Last Admin: 07/15/17 23:44 Dose: 400 mg Magnesium Hydroxide (Milk Of Magnesia) 30 ml PO Q8H PRN PRN Reason: Constipation Last Admin: 07/13/17 14:18 Dose: 30 ml Methylprednisolone Sodium Succinate (Solu-Medrol) 125 mg IVPUSH ONETIME ONE Stop: 07/12/17 04:28 Last Admin: 07/12/17 04:31 Dose: 125 mg Methylprednisolone Sodium Succinate (Solu-Medrol) Confirm Administered Dose 125 mg .ROUTE .STK-MED ONE Stop: 07/12/17 04:30 Last Admin: 07/12/17 04:35 Dose: Not Given Morphine Sulfate (Morphine) 4 mg IVPUSH ONETIME ONE Stop: 07/12/17 03:47 Last Admin: 07/12/17 03:53 Dose: 4 mg Multivitamins (Thera) 1 each PO DAILY [facility] Last Admin: 07/16/17 09:12 Dose: 1 each Cholecalciferol ( Vitamin D3) 1000 Unit Tab- Nonform Med 0 cap PO DAILY [facility] Last Admin: 07/13/17 17:14 Dose: Not Given Cholecalciferol ( Vitamin D3) 1000 Unit Tab-*Patients Own 2 cap PO DAILY [facility] Last Admin: 07/16/17 09:13 Dose: 2 cap Ondansetron HCl (Zofran) 4 mg IV ONETIME ONE Stop: 07/12/17 03:47 Last Admin: 07/12/17 03:52 Dose: 4 mg Polysaccharide Iron Complex (Ferrex 150) 150 mg PO DAILY [facility] Last Admin: 07/16/17 09:12 Dose: 150 mg Potassium Chloride (Klor-Con 10) 40 meq PO ONETIME ONE Stop: 07/12/17 12:33 Last Admin: 07/12/17 13:20 Dose: 40 meq Senna/Docusate Sodium (Senna Plus) 1 tab PO BID [facility] Last Admin: 07/16/17 09:12 Dose: 1 tab Sodium Chloride (Saline Flush) 10 ml FLUSH ASDIRECTED PRN PRN Reason: Keep Vein Open Tramadol HCl (Ultram) 50 mg PO Q6H PRN PRN Reason: Pain Last Admin: 07/16/17 05:55 Dose: 50 mg Zolpidem Tartrate (Ambien) 5 mg PO BEDTIME PRN PRN Reason: Sleep Last Admin: 07/15/17 23:44 Dose: 5 mg - Exam General: Alert, Oriented Extremities: Other (Left upper extremity pain) - Problem List & Annotations (1) Fracture of humerus SNOMED Code(s): 31891012 Code(s): S42.309A - UNSP FRACTURE OF SHAFT OF HUMERUS, UNSP ARM, INIT Status: Acute Qualifiers: Encounter type: initial encounter Humerus Location: proximal Fracture type: closed Fracture alignment: nondisplaced Laterality: left (2) Syncope SNOMED Code(s): 100865291 Code(s): R55 - SYNCOPE AND COLLAPSE Status: Acute Qualifiers: Syncope type: vasovagal syncope Qualified Code(s): R55 - Syncope and collapse - Problem List Review Problem List Initiated/Reviewed/Updated: Yes - Plan Plan:: #1 left humeral fracture. This appeared nondisplaced on x-ray. For now use a sling We'll need further orthopedic follow-up. #2 pain control We will be careful with narcotics, use Tylenol Use Motrin, she has tolerated naproxen in the past but does have celecoxib noted as an allergy #3 syncopal episode This might be due to pain medications, pain No arrhythmia on telemetry #4. Will have PT and OT to evaluate the patient for discharge planning #5 DVT prophylaxis with subcutaneous heparin
== END 2017-07-16 11:45 | DRG 563 ==
LOC: DL.ED 03:39 → UNDOADMOB 08:31 → DL.MS 08:31 → OBSVTOIN 07-15 16:03
PROVIDERS: ADMIT Internal Medicine; ATTEND Internal Medicine
PROC: 30233N1 Transfusion of Nonautologous Red Blood Cells into Peripheral Vein, Percutaneous Approach (ICD-10-PCS; principal; 2017-07-15)
DX: S42.302A Unspecified fracture of shaft of humerus, left arm, initial encounter for closed fracture (principal); D62 Acute posthemorrhagic anemia; W01.0XXA Fall on same level from slipping, tripping and stumbling without subsequent striking against object, initial encounter; Y92.129 Unspecified place in nursing home as the place of occurrence of the external cause; M25.512 Pain in left shoulder; M79.622 Pain in left upper arm; R55 Syncope and collapse; S40.022A Contusion of left upper arm, initial encounter; M19.90 Unspecified osteoarthritis, unspecified site; Z79.82 Long term (current) use of aspirin; Z88.5 Allergy status to narcotic agent; Z88.8 Allergy status to other drugs, medicaments and biological substances
CPT/HCPCS: 36415 ×3; 73030; 73060; 80048 ×3; 81001; 84484; 85018; 85025 ×3; 86850; 86900; 86901; 86920; 86922; 96374; 96375; 97163; 97166; 99285; A9270 ×26; J1200; J1644 ×10; J2270; J2405; J2930; 36430; 96372; 99284; G0378; P9016